=== PATIENT | female | born 1945 | race Hispanic/Latino ===

== ENCOUNTER 2022-01-13 14:54 | Observation (INO) | payer MEDICARE, SELFPAY ==
[2022-01-13] MEDS ORDERED: Magnesium 2 GM/50 ML BAG (IN WATER) ONE (15:16)
[2022-01-13] MEDS ORDERED: HumaLOG 300 UNITS/3 ML VIAL SC PRN (16:57)
[2022-01-13] MEDS ORDERED: Dextrose 50% Abboject 50 ML SYRINGE SLOW IVP PRN (16:57)
[2022-01-13] MEDS ORDERED: Dextrose 5% in Water 1,000 ML IV PRN (16:57)
[2022-01-13] MEDS ORDERED: hydrALAZINE 10 MG TAB PO PRN (17:08)
[2022-01-13] MEDS ORDERED: Carvedilol 6.25 MG TAB PO SCH (18:15)
[2022-01-13 18:19] LABS: Troponin I Less than 0.010 ng/mL (< 0.028)
[2022-01-13] MEDS ORDERED: hydrALAZINE 20 MG/ML VIAL SLOW IVP PRN (18:46)
[2022-01-13] MEDS ORDERED: Atorvastatin Calcium 40 MG TAB PO SCH (21:00)
[2022-01-13 21:56] VITALS: BMI 28.7
[2022-01-13] MEDS: Heparin 5,000 UNITS/ML VIAL SC SCH (22:06)
[2022-01-13] MEDS ORDERED: Morphine 4 MG/ML VIAL SLOW IVP SCH (23:30)
[2022-01-13] MEDS ORDERED: Nitroglycerin 2% Ointment 1 INCH/1 GM Packet TOP SCH (23:30)
[2022-01-14 04:08] LABS: #Eosinphils 0.2 10x3/uL (0.0-0.5); #Monocytes 0.6 10x3/uL (0.0-1.1); #Neutrophils 4.7 10x3/uL (1.5-8.4); %Basophils 0.2 % (0.0-2.0); %Eosinophils 2.7 % (0.0-6.0); %Lymphocytes 34.5 % (18.0-47.0); %Monocytes 6.7 % (0.0-10.0); %Neutrophils 55.5 % (40.0-75.0); Hemoglobin 10.1 g/dL (12.0-15.5); Mean Corpuscular HGB CONC 33.2 g/dL (32.0-36.0); Mean Corpuscular Volume 78.1 fl (81.6-98.3); Mean Platelet Volume 10.1 fl (7.4-10.4); Platelet Count 311 10x3/uL (150-450); RBC Distribution Width 15.5 % (11.5-14.5); Red Blood Cell (RBC) Count 3.89 10x6/uL (3.90-5.03); White Blood Cell (WBC) Count 8.5 10x3/uL (3.5-10.5)
[2022-01-14 04:38] LABS: PTT 27.5 sec (22.0-33.0)
[2022-01-14 04:42] LABS: Anion Gap 14 mmol/L (10-20); BUN (Urea Nitrogen) 22 mg/dL (9.8-20.1); Calc. Creatinine Clearance 50 mL/min (70-130); Carbon Dioxide 23 mmol/L (23-31); Chloride 106 mmol/L (98-107); Potassium 4.3 mmol/L (3.5-5.1); Sodium 139 mmol/L (136-145)
[2022-01-14 04:43] LABS: Calcium 9.2 mg/dL (7.8-10.44); Glucose 104 mg/dL (83-110); Magnesium 2.3 mg/dL (1.6-2.6)
[2022-01-14] MEDS ORDERED: Nitroglycerin 2% Ointment 1 INCH/1 GM Packet TOP SCH (06:00)
[2022-01-14] MEDS ORDERED: Carvedilol 6.25 MG TAB PO SCH (08:00)
[2022-01-14] MEDS ORDERED: CEFAZOLIN 1 GM VIAL ONE (08:20)
[2022-01-14] MEDS ORDERED: Gentamicin 80 MG/2 ML VIAL ONE (08:20)
[2022-01-14] MEDS ORDERED: Lidocaine 1% (PF) 30 ML VIAL ONE (08:21)
[2022-01-14] MEDS: Heparin 5,000 UNITS/ML VIAL SC SCH ×2 (08:30→16:24)
[2022-01-14] MEDS ORDERED: Fentanyl 100 MCG/2 ML VIAL ONE (08:35)
[2022-01-14] MEDS ORDERED: Midazolam HCl 5 mg/5 ml Vial ONE (08:35)
[2022-01-14] MEDS ORDERED: Losartan 25 MG TAB PO SCH (09:00)
[2022-01-14] MEDS ORDERED: Aspirin 81 mg Enteric Coated Tablet PO SCH (09:00)
[2022-01-14] MEDS ORDERED: Iopamidol 300 61% 50 ML VIAL FS ONE (09:16)
[2022-01-14] MEDS ORDERED: Acetaminophen 325 MG TAB PO PRN (10:46)
[2022-01-14] MEDS ORDERED: HYDROcodone/Acetaminophen 5/325 mg Tablet PO PRN (10:46)
[2022-01-14] MEDS ORDERED: HYDROcodone/Acetaminophen 10/325 mg Tablet PO PRN (10:47)
[2022-01-14] MEDS: Furosemide 40 MG TAB PO SCH ×2 (11:07→11:08)
[2022-01-14 17:32] VITALS: BP 149/70; TEMP 97
== END 2022-01-14 17:10 | disposition home or self-care (01) ==
LOC: CSHERS 14:54 → INTOOBSV 18:12 → CSHTELE 18:12
PROVIDERS: ADMIT Internal Medicine; ATTEND Internal Medicine
DX: I49.5 Sick sinus syndrome (principal); R07.89 Other chest pain; I49.3 Ventricular premature depolarization; I42.0 Dilated cardiomyopathy; E78.5 Hyperlipidemia, unspecified; I10 Essential (primary) hypertension; E11.9 Type 2 diabetes mellitus without complications; I34.0 Nonrheumatic mitral (valve) insufficiency; D64.9 Anemia, unspecified; Z79.899 Other long term (current) drug therapy; Z79.84 Long term (current) use of oral hypoglycemic drugs; Z79.82 Long term (current) use of aspirin; Z87.891 Personal history of nicotine dependence
CPT/HCPCS: 33208; 71045; 80048; 82962 ×2; 83735; 84484; 85025; 85610; 85730; 93005; 96365; 96366; 97139; 99285; C1785; C1898 ×2; 36415; 36416; 93010; 96375; 99152; 99153; G0378; J0690; J1580; J1644; J2001; J2250; J2270; J3010; J3475; Q9967

== ENCOUNTER 2022-11-26 13:55 | Observation (INO) | payer MEDICARE, OTHER ==
[2022-11-26 14:55] LABS: #Eosinphils 0.4 10x3/uL (0.0-0.5); #Monocytes 0.9 10x3/uL (0.0-1.1); #Neutrophils 8.7 10x3/uL (1.5-8.4); %Basophils 0.2 % (0.0-2.0); %Eosinophils 3.4 % (0.0-6.0); %Lymphocytes 20.2 % (18.0-47.0); %Monocytes 6.7 % (0.0-10.0); %Neutrophils 69.1 % (40.0-75.0); Hemoglobin 11.1 g/dL (12.0-15.5); Mean Corpuscular HGB CONC 34.5 g/dL (32.0-36.0); Mean Corpuscular Hemoglobin 26.1 pg (27.0-33.0); Mean Corpuscular Volume 75.8 fl (81.6-98.3); Mean Platelet Volume 9.2 fl (7.4-10.4); Platelet Count 391 10x3/uL (150-450); RBC Distribution Width 16.4 % (11.5-14.5); Red Blood Cell (RBC) Count 4.25 10x6/uL (3.90-5.03); White Blood Cell (WBC) Count 12.6 10x3/uL (3.5-10.5)
[2022-11-26 15:10] LABS: ALT (SGPT) 22 U/L (8-55); AST (SGOT) 28 U/L (5-34); Albumin 4.6 g/dL (3.4-4.8); Alkaline Phosphatase 72 U/L (40-110); Anion Gap 18 mmol/L (10-20); BUN (Urea Nitrogen) 21 mg/dL (9.8-20.1); Bilirubin, Total 0.4 mg/dL (0.2-1.2); Calc. Creatinine Clearance 0 mL/min (70-130); Calcium 10.2 mg/dL (7.8-10.44); Carbon Dioxide 21 mmol/L (23-31); Chloride 98 mmol/L (98-107); Estimated GFR 71; Globulin 4.2 g/dL (2.4-3.5); Glucose 83 mg/dL (83-110); Lipase 60 U/L (8-78); Potassium 4.8 mmol/L (3.5-5.1); Protein, Total 8.8 g/dL (5.8-8.1); Sodium 132 mmol/L (136-145)
[2022-11-26] MEDS ORDERED: HumaLOG 300 UNITS/3 ML VIAL SC PRN ×2 (17:35)
[2022-11-26] MEDS ORDERED: Dextrose 50% Abboject 50 ML SYRINGE SLOW IVP PRN (17:35)
[2022-11-26] MEDS ORDERED: Dextrose 5% in Water 1,000 ML IV PRN (17:35)
[2022-11-26] MEDS ORDERED: Ondansetron PF 4 MG/2 ML Vial IVP PRN (17:43)
[2022-11-26] MEDS ORDERED: Ondansetron ODT 4 MG TAB PO PRN (17:43)
[2022-11-26] MEDS ORDERED: Senokot S 8.6-50 MG TAB PO PRN (17:43)
[2022-11-26] MEDS ORDERED: Nitroglycerin 0.4 MG TAB (25 Tab Bottle) SL PRN (17:46)
[2022-11-26 18:05] LABS: Magnesium 1.8 mg/dL (1.6-2.6)
[2022-11-26 18:09] LABS: Troponin I Less than 0.010 ng/mL (< 0.028)
[2022-11-26 20:22] VITALS: BMI 29.2
[2022-11-26 21:00] LABS: Troponin I Less than 0.010 ng/mL (< 0.028)
[2022-11-26 21:06] LABS: SARS-CoV-2 NAA Rapid Test DETECTED (NotDetected)
[2022-11-26] MEDS ORDERED: Acetaminophen 325 MG TAB ONE (21:48)
[2022-11-26] MEDS: Acetaminophen 325 MG TAB PO PRN (21:51)
[2022-11-27 03:43] LABS: #Eosinphils 0.4 10x3/uL (0.0-0.5); #Monocytes 0.7 10x3/uL (0.0-1.1); #Neutrophils 5.9 10x3/uL (1.5-8.4); %Basophils 0.3 % (0.0-2.0); %Eosinophils 3.5 % (0.0-6.0); %Lymphocytes 31.4 % (18.0-47.0); %Monocytes 6.7 % (0.0-10.0); %Neutrophils 57.8 % (40.0-75.0); Hemoglobin 10.7 g/dL (12.0-15.5); Mean Corpuscular HGB CONC 34.9 g/dL (32.0-36.0); Mean Corpuscular Hemoglobin 26.1 pg (27.0-33.0); Mean Corpuscular Volume 74.9 fl (81.6-98.3); Mean Platelet Volume 9.6 fl (7.4-10.4); Platelet Count 365 10x3/uL (150-450); RBC Distribution Width 16.1 % (11.5-14.5); White Blood Cell (WBC) Count 10.3 10x3/uL (3.5-10.5)
[2022-11-27 03:53] LABS: Anion Gap 15 mmol/L (10-20); BUN (Urea Nitrogen) 22 mg/dL (9.8-20.1); Calc. Creatinine Clearance 63 mL/min (70-130); Calcium 9.8 mg/dL (7.8-10.44); Carbon Dioxide 23 mmol/L (23-31); Chloride 97 mmol/L (98-107); Estimated GFR 77; Glucose 91 mg/dL (83-110); Potassium 3.9 mmol/L (3.5-5.1); Sodium 131 mmol/L (136-145)
[2022-11-27] MEDS ORDERED: Furosemide 40 MG TAB ONE (07:33)
[2022-11-27] MEDS: Furosemide 40 MG TAB PO SCH (07:45)
[2022-11-27] MEDS ORDERED: [UNRECOGNIZED DRUG - OTHER] PO SCH (08:00)
[2022-11-27] MEDS ORDERED: METFORMIN HCL PO SCH (08:00)
[2022-11-27] MEDS ORDERED: SITAGLIPTIN PHOS PO SCH (08:00)
[2022-11-27] MEDS ORDERED: metFORMIN 500 MG TAB ONE (08:13)
[2022-11-27] MEDS: Carvedilol 6.25 MG TAB PO SCH ×2 (08:40→17:38)
[2022-11-27] MEDS: metFORMIN 500 MG TAB PO SCH ×2 (08:40→17:38)
[2022-11-27] MEDS: Alogliptin 25 MG TAB PO SCH ×2 (08:40→17:38)
[2022-11-27] MEDS ORDERED: Atorvastatin Calcium 40 MG TAB PO SCH (09:00)
[2022-11-27] MEDS ORDERED: Aspirin 325 MG TAB ONE (10:12)
[2022-11-27] MEDS ORDERED: Losartan Potassium 50 MG TAB ONE (10:13)
[2022-11-27] MEDS ORDERED: Cholecalciferol 1,000 UNITS (25 MCG) TAB ONE ×2 (10:14→10:15)
[2022-11-27] MEDS ORDERED: Atorvastatin Calcium 40 MG TAB ONE (10:14)
[2022-11-27] MEDS: Losartan Potassium 50 MG TAB PO SCH (10:45)
[2022-11-27] MEDS: Cholecalciferol 1,000 UNITS (25 MCG) TAB PO SCH (10:45)
[2022-11-27] MEDS: Aspirin 325 mg Enteric Coated Tablet PO SCH (10:45)
[2022-11-27] MEDS ORDERED: Pregabalin 50 MG CAP ONE (10:56)
[2022-11-27] MEDS: Pregabalin 50 MG CAP PO SCH ×2 (10:58→22:34)
[2022-11-27] MEDS ORDERED: Nitroglycerin 0.4 MG TAB 1 EACH ONE (11:54)
[2022-11-27] MEDS: Acetaminophen 325 MG TAB PO PRN (14:03)
[2022-11-28 04:29] LABS: #Eosinphils 0.3 10x3/uL (0.0-0.5); #Monocytes 0.8 10x3/uL (0.0-1.1); #Neutrophils 5.8 10x3/uL (1.5-8.4); %Basophils 0.3 % (0.0-2.0); %Eosinophils 3.3 % (0.0-6.0); %Lymphocytes 26.4 % (18.0-47.0); %Monocytes 8.3 % (0.0-10.0); %Neutrophils 61.3 % (40.0-75.0); Hemoglobin 10.8 g/dL (12.0-15.5); Mean Corpuscular HGB CONC 33.9 g/dL (32.0-36.0); Mean Corpuscular Hemoglobin 25.9 pg (27.0-33.0); Mean Corpuscular Volume 76.5 fl (81.6-98.3); Mean Platelet Volume 9.5 fl (7.4-10.4); Platelet Count 351 10x3/uL (150-450); RBC Distribution Width 16.3 % (11.5-14.5); Red Blood Cell (RBC) Count 4.17 10x6/uL (3.90-5.03); White Blood Cell (WBC) Count 9.4 10x3/uL (3.5-10.5)
[2022-11-28 04:34] LABS: Anion Gap 15 mmol/L (10-20); BUN (Urea Nitrogen) 26 mg/dL (9.8-20.1); Calc. Creatinine Clearance 62 mL/min (70-130); Calcium 9.8 mg/dL (7.8-10.44); Carbon Dioxide 21 mmol/L (23-31); Chloride 99 mmol/L (98-107); Estimated GFR 76; Glucose 88 mg/dL (83-110); Sodium 131 mmol/L (136-145)
[2022-11-28] MEDS: Aspirin 81 mg Enteric Coated Tablet PO SCH ×2 (08:45→08:52)
[2022-11-28] MEDS: metFORMIN 500 MG TAB PO SCH (08:46)
[2022-11-28] MEDS: Cholecalciferol 1,000 UNITS (25 MCG) TAB PO SCH (08:46)
[2022-11-28] MEDS: Pregabalin 50 MG CAP PO SCH (08:47)
[2022-11-28] MEDS: Carvedilol 6.25 MG TAB PO SCH (08:47)
[2022-11-28] MEDS: Furosemide 40 MG TAB PO SCH (08:48)
[2022-11-28] MEDS: Losartan Potassium 50 MG TAB PO SCH (08:48)
[2022-11-28] MEDS: Alogliptin 25 MG TAB PO SCH (08:53)
[2022-11-28] MEDS: Aspirin 325 mg Enteric Coated Tablet PO SCH (08:54)
[2022-11-28 12:26] VITALS: TEMP 98.5
[2022-11-28 12:27] VITALS: BP 135/66
== END 2022-11-28 15:10 | disposition home or self-care (01) ==
LOC: CSHERS 13:55 → CSHERHOLD 16:21 → INTOOBSV 16:21 → UNDOADMIN 20:09 → CSHERHOLD 20:09 → CSHTELE 11-27 12:29
PROVIDERS: ADMIT Internal Medicine; ATTEND Internal Medicine
DX: R07.2 Precordial pain (principal); U07.1 COVID-19; E78.5 Hyperlipidemia, unspecified; D64.9 Anemia, unspecified; E87.1 Hypo-osmolality and hyponatremia; I12.9 Hypertensive chronic kidney disease with stage 1 through stage 4 chronic kidney disease, or unspecified chronic kidney disease; E11.22 Type 2 diabetes mellitus with diabetic chronic kidney disease; N18.2 Chronic kidney disease, stage 2 (mild); R79.89 Other specified abnormal findings of blood chemistry; Z79.84 Long term (current) use of oral hypoglycemic drugs; Z79.82 Long term (current) use of aspirin; Z79.899 Other long term (current) drug therapy; Z90.49 Acquired absence of other specified parts of digestive tract; Z86.16 Personal history of COVID-19; Z95.0 Presence of cardiac pacemaker
CPT/HCPCS: 0240U; 71045; 80048 ×2; 80053; 82962 ×3; 83690; 83735; 83880; 84484 ×2; 85025 ×3; 93005; 94760; 99285; G0378 ×4; 36415; 36416

== ENCOUNTER 2023-01-20 07:42 | Outpatient (CLI) | payer MEDICARE | END 2023-01-20 07:43 | disposition home or self-care (01) | LOC: CSHULT 07:42 | PROVIDERS: ATTEND Nurse Practitioner Family | DX: R10.13 Epigastric pain (principal); Z90.49 Acquired absence of other specified parts of digestive tract | CPT/HCPCS: 76700 ==

== ENCOUNTER 2023-03-29 15:54 | Outpatient (CLI) | payer MEDICARE | END 2023-03-29 15:55 | disposition home or self-care (01) | LOC: CSHULT 15:54 | PROVIDERS: ATTEND Emergency Medicine | DX: M25.562 Pain in left knee (principal) ==

== ENCOUNTER 2024-11-07 14:07 | Emergency (ER) | payer MEDICARE ==
[2024-11-07] MEDS ORDERED: cefTRIAXone (ROCEPHIN) 1 GM VIAL ONE (14:57)
[2024-11-07 15:16] LABS: Actual Bicarbonate (HCO3v) 15.9 mEq/L (22-28); Analyzer IN Cardio CS ER; Base Excess -7.7 mEq/L (-2 - +2); Calcium, Ionized (venous) 1.06 mmol/L (1.16-1.32); Chloride (VBG) 101 mmol/L (98-106); Hematocrit-VBG 32 % (36.0-47.0); Hemoglobin (Hb) 10.9 g/dL (11.7-16.1); Potassium (VBG) 3.69 mmol/L (3.70-5.30); Puncture Site Other Site; RapidComm Collect By RN; Sodium 130 mmol/L (133-146); pH (venous) 7.392 (7.32-7.43)
[2024-11-07 15:26] LABS: Hemoglobin 10.8 g/dL (12.0-15.5); Mean Corpuscular Hemoglobin 29.9 pg (27.0-33.0); Mean Corpuscular Volume 83.1 fL (81.6-98.3); Mean Platelet Volume 11.2 fL (7.4-10.4); Platelet Count 152 10x3/uL (150-450); RBC Distribution Width 13.4 % (11.5-14.5); Red Blood Cell (RBC) Count 3.61 10x6/uL (3.90-5.03); White Blood Cell (WBC) Count 5.3 10x3/uL (3.5-10.5)
[2024-11-07 15:27] LABS: ALT (SGPT) 63 U/L (8-55); AST (SGOT) 97 U/L (5-34); Albumin 3.1 g/dL (3.4-4.8); Alkaline Phosphatase 96 U/L (40-110); Anion Gap 13 mmol/L (10-20); BUN (Urea Nitrogen) 29 mg/dL (9.8-20.1); Bilirubin, Total 0.8 mg/dL (0.2-1.2); Calc. Creatinine Clearance 0 mL/min (70-130); Calcium 8.2 mg/dL (7.8-10.44); Carbon Dioxide 17 mmol/L (23-31); Chloride 101 mmol/L (98-107); Estimated GFR 43; Globulin 3.5 g/dL (2.4-3.5); Glucose 145 mg/dL (83-110); Potassium 3.8 mmol/L (3.5-5.1); Protein, Total 6.6 g/dL (5.8-8.1); Sodium 127 mmol/L (136-145)
[2024-11-07 15:54] LABS: Band 32 % (5-11); Lymphocytes 3 % (21-51); Monocytes 3 % (0-10); Reactive Lymphocytes 1 % (0-10)
[2024-11-07 16:02] LABS: Neutrophil 61 % (42-75); RBC Morph Comment Within Normal Limits
[2024-11-07 16:03] LABS: Dohle Bodies SLIGHT; Platelet Adequacy Comment Appears Adequate; Platelet Clumps SLIGHT
[2024-11-07 16:08] LABS: MDiff Complete? YES
[2024-11-07 18:03] LABS: Bilirubin Neg (Negative); Blood, Urine 25 (Negative); Clarity Clear (Clear); Glucose, Urine (Dipstick) >=1000 mg/dL (Negative); Ketone, Urine Negative (Negative); Leukocyte Negative (Negative); Nitrite Negative (Negative); Protein, Urine (Dipstick) 15 mg/dl (Neg-Trace); Urobilinogen Normal mg/dL (Less than 2)
[2024-11-07 18:29] LABS: Bacteria/HPF Rare-Few HPF (None Seen); CAUTI Indications for Culture Fever or rigors; RBC/HPF 0-3 HPF (0-3); Squamous Epithelial 0-3 HPF (0-3); Urine Culture Reflex No No; WBC/HPF 0-3 HPF (0-3)
[2024-11-07 19:33] LABS: Anion Gap 13 mmol/L (10-20); BUN (Urea Nitrogen) 30 mg/dL (9.8-20.1); Calc. Creatinine Clearance 0 mL/min (70-130); Carbon Dioxide 16 mmol/L (23-31); Chloride 105 mmol/L (98-107); Estimated GFR 47; Glucose 114 mg/dL (83-110); Potassium 3.4 mmol/L (3.5-5.1); Sodium 131 mmol/L (136-145)
== END 2024-11-07 20:42 | disposition home or self-care (01) ==
LOC: CSHERS 14:07
DX: E87.1 Hypo-osmolality and hyponatremia (principal); E86.0 Dehydration; R50.9 Fever, unspecified; E11.9 Type 2 diabetes mellitus without complications; E78.5 Hyperlipidemia, unspecified; I10 Essential (primary) hypertension; Z79.82 Long term (current) use of aspirin; Z79.84 Long term (current) use of oral hypoglycemic drugs; Z79.899 Other long term (current) drug therapy
CPT/HCPCS: 71045; 72100; 80048; 80053; 81001; 82805; 83605; 85025; 87040; 87086; 87428; 93005; 94760; 96361; 96365; 99285; J0696; 36415

== ENCOUNTER 2024-11-11 05:59 | Emergency (ER) | payer MEDICARE ==
[2024-11-11 07:31] LABS: Anion Gap 19 mmol/L (10-20); BUN (Urea Nitrogen) 31 mg/dL (9.8-20.1); Calc. Creatinine Clearance 0 mL/min (70-130); Calcium 8.5 mg/dL (7.8-10.44); Carbon Dioxide 18 mmol/L (23-31); Chloride 97 mmol/L (98-107); Estimated GFR 48; Glucose 101 mg/dL (83-110); Potassium 3.9 mmol/L (3.5-5.1); Sodium 130 mmol/L (136-145)
[2024-11-11 07:35] LABS: Hematocrit 28.4 % (34.9-44.5); Hemoglobin 10.1 g/dL (12.0-15.5); Mean Corpuscular HGB CONC 35.6 g/dL (32.0-36.0); Mean Corpuscular Hemoglobin 28.2 pg (27.0-33.0); Mean Corpuscular Volume 79.3 fL (81.6-98.3); Mean Platelet Volume 11.7 fL (7.4-10.4); Platelet Count 169 10x3/uL (150-450); RBC Distribution Width 13.6 % (11.5-14.5); Red Blood Cell (RBC) Count 3.58 10x6/uL (3.90-5.03); White Blood Cell (WBC) Count 4.5 10x3/uL (3.5-10.5)
[2024-11-11 07:36] LABS: MDiff Complete? YES
[2024-11-11 07:39] LABS: Troponin I 0.026 ng/mL (< 0.028)
[2024-11-11 08:18] LABS: Bilirubin Neg (Negative); Blood, Urine 25 (Negative); Clarity Slightly Cloudy (Clear); Glucose, Urine (Dipstick) >=1000 mg/dL (Negative); Ketone, Urine Negative (Negative); Leukocyte Negative (Negative); Nitrite Negative (Negative); Protein, Urine (Dipstick) 100 mg/dl (Neg-Trace); Urobilinogen Normal mg/dL (Less than 2)
[2024-11-11 08:29] LABS: Band 9 % (5-11); Lymphocytes 10 % (21-51); Monocytes 1 % (0-10); Neutrophil 78 % (42-75); Reactive Lymphocytes 2 % (0-10)
[2024-11-11 08:32] LABS: Large Platelets SLIGHT (None Seen); Microcytosis SLIGHT = 6-15 cells (100X) (0-5/hpf); Platelet Adequacy Comment Appears Adequate; Vacuoles SLIGHT
[2024-11-11 08:50] LABS: CAUTI Indications for Culture Dysuria,urgency,freq; RBC/HPF 0-3 HPF (0-3); WBC/HPF None Seen HPF (0-3)
[2024-11-11 08:51] LABS: Bacteria/HPF Rare-Few HPF (None Seen); Squamous Epithelial 0-3 HPF (0-3); Urine Culture Reflex No No
[2024-11-11] MEDS ORDERED: Morphine 4 MG/ML VIAL ONE (09:21)
== END 2024-11-11 12:20 | disposition home or self-care (01) ==
LOC: CSHERS 05:59
DX: M54.50 Low back pain, unspecified (principal); R16.0 Hepatomegaly, not elsewhere classified; I25.10 Atherosclerotic heart disease of native coronary artery without angina pectoris; I48.91 Unspecified atrial fibrillation; E11.9 Type 2 diabetes mellitus without complications; I10 Essential (primary) hypertension; E78.5 Hyperlipidemia, unspecified; Z95.5 Presence of coronary angioplasty implant and graft; Z79.82 Long term (current) use of aspirin; Z79.84 Long term (current) use of oral hypoglycemic drugs; Z79.899 Other long term (current) drug therapy
CPT/HCPCS: 71045; 72131; 74177; 80048; 81001; 83605; 83880; 84484; 85025; 87040; 87428; 93005; J2272; 36415; 96374